=== PATIENT | female | born 1960 | race Caucasian/White ===

== ENCOUNTER → 2017-06-03 | Outpatient (CLI) | payer OTHER ==
[2017-06-03 08:11] LABS: Appearance,Urine Clear (Clear); Bilirubin,Urine Negative (Negative); Blood,Urine Negative (Negative); Color,Urine Yellow; Glucose,Urine (UA) Negative (Negative); Ketones,Urine Negative (Negative); Leukocyte Esterase,Urine Negative (Negative); Nitrite,Urine Negative (Negative); PH, Urine 7.5 (5.0-8.0); Protein,Urine Trace (Negative); Specific Gravity,Urine 1.017 (1.001-1.035); Urobilinogen,Urine <2.0 mg/dL (<2.0)
[2017-06-03 08:15] LABS: Basophils # (A) 0.1 k/uL (0-0.2); Basophils % (A) 1 %; Eosinophils # (A) 0.1 k/uL (0-0.7); Eosinophils % (A) 3 %; HCT 46.1 % (34.0-46.0); Lymphocytes % (A) 19 %; MCH 29.5 pg (25.0-35.0); MCHC 32.4 g/dL (31.0-37.0); MCV 90.9 fL (80.0-100.0); Mean Platelet Volume 8.3; Monocytes # (A) 0.3 k/uL (0-1.0); Monocytes % (A) 6 %; Neutrophils # (A) 3.9 k/uL (1.3-7.7); Neutrophils % (A) 71 %; Platelet Count 271 k/uL (150-450); RBC 5.08 m/uL (3.80-5.40); RDW 13.5 % (11.5-15.5); WBC 5.5 k/uL (3.8-10.6)
[2017-06-03 08:19] LABS: Anion Gap 10 mmol/L; Blood Urea Nitrogen 19 mg/dL (7-17); Calcium 10.1 mg/dL (8.4-10.2); Carbon Dioxide 29 mmol/L (22-30); Chloride 103 mmol/L (98-107); Glucose 87 mg/dL (74-99); Partial Thromboplastin Time 23.9 sec (22.0-30.0); Potassium 4.3 mmol/L (3.5-5.1); Prothrombin Time 10.2 sec (9.0-12.0); Sodium 142 mmol/L (137-145)
--- NOTE | 2017-06-03 08:33 | XR ---
EXAMINATION TYPE: XR chest 2V DATE OF EXAM: 06/03/2017 COMPARISON: NONE HISTORY: Preop back surgery TECHNIQUE: Frontal and lateral views of the chest are obtained. FINDINGS: Heart and mediastinum are normal. Lungs are clear. Diaphragm is normal. There is minor spu rring in the thoracic spine. IMPRESSION: No active cardiopulmonary disease.
== END | disposition home or self-care (01) ==
LOC: LABWHC1 07:31
PROVIDERS: ATTEND Orthopaedic Surgery Orthopaedic Surgery of the Spine
DX: Z01.818 Encounter for other preprocedural examination (principal); M48.07 Spinal stenosis, lumbosacral region; Z01.812 Encounter for preprocedural laboratory examination
CPT/HCPCS: 36415; 71020; 80048; 81003; 85025; 85610; 85730; 87070; 93005

== ENCOUNTER 2017-06-14 05:52 | Inpatient (IN) | payer OTHER ==
[2017-06-07 23:07] VITALS: BMI 27.4
[~2017-06-14 05:52] MED LIST: BACITRACIN 50,000 UNIT, POLYMYXIN B 500,000 UNIT in SODIUM CHLORIDE 0.9% IRRIGATIO 1,00... IRRIGATION ONE; ceFAZolin IN SWFI 2 GM/20 ML SYRINGE IVP ONE
[2017-06-14] MEDS ORDERED: DEXAMETHASONE SOD PHOSPHATE 10 MG/ML 1 ML VIAL IV ONE (06:12)
[2017-06-14] MEDS ORDERED: MIDAZOLAM 2 MG/2 ML VIAL IV PRN (06:12)
[2017-06-14] MEDS: LACTATED RINGERS 1,000 ML IV SCH (06:35)
[2017-06-14] MEDS ORDERED: LIDOCAINE 1% 20 ML VIAL (10MG/ML) FOR IV START INTRADERMA ONE (06:35)
[2017-06-14] MEDS: ONDANSETRON 4 MG/2 ML VIAL IVP ONE ×2 (06:37→12:08)
[2017-06-14] MEDS ORDERED: SODIUM CHLORIDE 0.9% IRRIG 1,000 ML BTL IRRIGATION ONE (07:42)
[2017-06-14] MEDS ORDERED: MORPHINE SULFATE 10 MG/ML SYRINGE ONE (07:42)
[2017-06-14] MEDS ORDERED: GLYCOPYRROLATE 0.2 MG/ML 2 ML VIAL ONE (07:42)
[2017-06-14] MEDS ORDERED: PROPOFOL 10 MG/ML 20 ML VIAL IV ONE (07:42)
[2017-06-14] MEDS ORDERED: fentaNYL (PF) 50 MCG/ML 2 ML AMP ONE (07:42)
[2017-06-14] MEDS ORDERED: ROCURONIUM BROMIDE 10 MG/ML 10 ML VIAL IV ONE (07:42)
[2017-06-14] MEDS ORDERED: NEOSTIGMINE 1 MG/ML 10 ML VIAL ONE (07:42)
[2017-06-14] MEDS ORDERED: HEPARIN SODIUM,PORCINE 10,000 UNIT/ML 1 ML VIAL ONE (07:42)
[2017-06-14] MEDS ORDERED: SUCCINYLCHOLINE CHLORIDE 100 MG/5 ML SYR IV ONE (07:42)
[2017-06-14] MEDS ORDERED: LIDOCAINE 1% INJ 10MG/ML (20 ML MDV) ONE (07:42)
[2017-06-14] MEDS ORDERED: MIDAZOLAM 2 MG/2 ML VIAL ONE (07:42)
[2017-06-14] MEDS ORDERED: KETAMINE 10 MG/ML 20 ML VIAL ONE (07:42)
[2017-06-14] MEDS ORDERED: THROMBIN (BOVINE) 5,000 UNIT VIAL TOPICAL ONE (08:34)
[2017-06-14] MEDS ORDERED: GELATIN SPONGE,ABSORB (SMALL) 1 EACH SPONGE TOPICAL ONE (08:34)
[2017-06-14] MEDS ORDERED: BUPIVACAINE (PF) 0.25% 30 ML VIAL SQ ONE (08:35)
[2017-06-14] MEDS ORDERED: LACTATED RINGERS 1,000 ML IV ONE ×2 (09:29→11:36)
[2017-06-14] MEDS ORDERED: HYDROmorphone 2 MG/ML 1 ML SYRINGE IVP PRN ×2 (11:40)
[2017-06-14] MEDS ORDERED: HYDROcodone/APAP 5-325MG 1 EACH TAB PO PRN (11:40)
[2017-06-14] MEDS ORDERED: BENZOCAINE/MENTHOL LOZENG 1 EACH LOZENGE MUCOUS MEM PRN (11:40)
[2017-06-14] MEDS ORDERED: DIAZEPAM 5 MG TAB PO PRN (11:40)
[2017-06-14] MEDS ORDERED: MAGNESIUM HYDROXIDE 2,400 MG/10 ML CUP PO PRN (11:40)
[2017-06-14] MEDS ORDERED: traMADol 50 MG TAB PO PRN (11:43)
[2017-06-14] MEDS ORDERED: oxyCODONE-APAP 10-325MG 1 EACH TAB PO PRN (11:43)
--- NOTE | 2017-06-14 11:53 | P.OP ---
Date of Procedure: 06/14/17 Preoperative Diagnosis: Spinal stenosis L4 5 L5-S1, degenerative disc disease L4 5 L5-S1, lower extremity radiculopathy, disc herniation L4 5 L5-S1, facet arthrosis Postoperative Diagnosis: Same Anesthesia: GETA Pathology: none sent Condition: stable Disposition: PACU Description of Procedure: DESCRIPTION OF PROCEDURE(S): BRIEF OPERATIVE NOTE Preoperative Diagnosis: Spinal Stenosis L4/5 L5/S1, degen disc disease L4/5, L5S1, herniated disc L4/5, L5/S1, lower extremity radiculopathy, Postoperative Diagnosis:same Procedure: Laminectomy and decompression L4/5, L5/S1 Minimally invasive Posterior decompression and fusion L4 5 L5- S1 Minimally invasive Transforaminal lumbar interbody fusion for a 360 fusion or 5 L5-S1 Discectomy for decompression L4 5 L5-S1 Placement of interbody graft L4 5 L5-S1 Local autogenous bone grafting Harvesting of bone marrow aspirate the pedicle of L4 on the right Use of Cell Saver Use of bone graft extenders Surgeon: Dr. Bird Sterile Technician: Johan Davila is present throughout the entire the case persistence during positioning, dissection, exposure, visualization, and all crucial elements of the case as well as closure. Anesthesia: General anesthesia per Dr. Ervin Estimated blood loss: Approximately 300 mL with 175 given back through Cell Saver Complications: None apparent Components implanted: K2M minimally invasive [place] pedicle screw system with use of 6 screws measuring 6.5 mm in diameter to rods and 2 Wise interbody cages with 1 osteoamp sponge and 30 mL of DBX bone fibers to supplemental local autogenous bone graft Disposition: To recovery room in good stable condition. OPERATIVE INDICATIONS The patient has had long-standing issues in their lower back and lower extremities. The patient was found to have significant stenosis L4 5 L5-S1 with disc herniation and degenerative disc disease. These findings correlated well with her low back pain and lower extremity radiculopathy. The patient has been through conservative treatment. She is not any prolonged benefit despite aggressive conservative treatment. We discussed various treatment options including surgery, and the patient wishes to proceed with surgery We discussed the risk, patient's alternatives and benefits of surgery including but not limited to, risk of bleeding risk of infection, risk of need for further surgery , risk of decreased, loss of motion, muscle function, malunion nonunion, hardware failure, nerve damage, paralysis, heart attack, blindness and . OPERATIVE SUMMARY After discussing all the risks, patient alternatives and benefits at length, the patient elected to proceed with surgical intervention, signed informed consent, and presented for their procedure. The patient was seen and examined in the preoperative holding area and the surgical site was marked. The patient was given antibiotics and brought to the operating room. The patient was sedated and intubated by anesthesia in standard fashion. The patient was positioned on to the operating room table in a prone position on the appropriate frame which was well-padded and well molded. We were careful to pad any bony prominences and pressure points. We were careful to maintain the patient's cervical spine and good neutral alignment and position throughout. The patient was prepped and draped in a normal standard fashion. An appropriate timeout and keystone protocol performed. We were able to proceed with the surgery. The local wound area was infiltrated with local anesthetic. I was able utilize C-arm guidance to establish appropriate position over the pedicles bilaterally at the appropriate levels at L4 and L5 bilaterally. With the appropriate levels confirmed was able to make small stab incisions over the appropriate pedicle sites bilaterally. Utilizing C-arm in his house able to establish a Jamshidi needle over the lateral aspect of the pedicle and advanced the trocar into the pedicle being careful not to breech superiorly inferiorly medially or laterally. Position was confirmed regularly with AP and lateral images on C-arm. I was able to establish the trocar into the pedicle appropriately into the posterior aspect of the vertebral body bilaterally at the appropriate levels. This was done at each of the pedicle positions and each of the vertebrae. On the right side of L4 I did draw bone marrow aspirate for supplementation of the bone graft for later use in the case. I was able place the guidewire into the trocar and into the vertebral body appropriately under C-arm guidance. Dissection was taken down over the wire to the appropriate starting position for the screw placed. The appropriate length screw was chosen, threaded over the guidewire and screwed appropriately into the pedicle and vertebral body under C-arm guidance in excellent alignment and position with good bony purchase. This is done at each of the screw sites at the appropriate levels at L4-L5 and S1 bilaterally. With the screws intact I extended the incision to connect the screw hole sites on the most symptomatic side on the left. I dissected down to establish access over the pars and lamina to the base of the spinous process. I was able to expose the facet joint. The capsule the facet was taken down and showed some facet arthrosis at the joint first at L4 5 and then at L5-S1. I was able to use a combination of curettes and Kerrison rongeurs and a high-speed drill to take down the facet joint and do a facetectomy. Partial laminectomy was also performed. I was able get excellent foraminal decompression and central decompression with undermining across midline to perform a laminectomy centrally and contralaterally. As able get good central decompression. The ligamentum flavum was taken down to further decompress centrally and at bilateral neural foramen. I was able to expose the disc space and visualize the traversing nerve root. Note was made of some disc protrusion at the level causing further compression of the nerve root. I was able to establish a annulotomy at the appropriate level protecting soft tissue and neural structures. Note was made of some disc desiccation at the disc. I performed a complete discectomy with accommodation of curettes and rasps and scrapers. The discectomy provided further decompression as well. I was able get good endplate preparation at the disc space. I sized for the appropriate size interbody spacer protecting the soft tissue and neural structures. The wound was copiously irrigated and suctioned dry. There is no evidence of any dural tear or leak. I was able to pack the disc space with local autogenous bone graft as well as a small amount of bone graft which was also placed into the interbody cage itself. Protecting the soft tissue structures and neural structures I was able place the interbody cage in good alignment and good position with good fit and fill at the interbody space at L4 5 and L5-S1. Position was confirmed with C- arm guidance. Good hemostasis maintained. There is no evidence of any dural tear or leak. The wound was irrigated and suctioned dry. With the hardware intact, intraoperative C-arm imaging was again taken which showed good alignment and position of the hardware at the appropriate levels at L4 5 and L5-S1. We were then able to measure, contour and place the rods and appropriate hardware bilaterally. I was able to place capcrews, tighten them down, and torque them with the torque screwdriver appropriately. With this intact I was able to place the local autogenous bone graft with additional bone graft enhancer as necessary into the posterior lateral gutters over the decorticated transverse processes and at the decorticated facet joints on the right. The remainder of the bone graft was placed over the facet joint on the contralateral side after taking down the facet joint capsule. With the bone graft intact, a stable construct, and good decompression at the appropriate levels, we were able to proceed with closure. Good hemostasis was maintained. There is no evidence of dural tear or leak. The fascia was closed for a watertight closure. he subcuticular tissue was closed with absorbable suture. The wound was cleaned and dried and dressed with the appropriate dressing. The drapes were broken down. The patient was gently rolled back onto their hospital bed being careful to maintain their cervical spine and good neutral alignment and position. They were woken up by anesthesia, extubated, and brought to the recovery room in good stable condition. The patient will be admitted to the hospital for appropriate postoperative care , medical management and monitoring. We will continue to follow them closely about the postoperative course.
[2017-06-14] MEDS: HYDROmorphone 0.5 MG/0.5 ML SYRINGE IVP PRN ×4 (12:08→14:20)
--- NOTE | 2017-06-14 14:57 | FL ---
Fluoroscopy HISTORY: Lumbar fusion 1.15 minutes fluoroscopy time supplied to the referring clinician. 2 intraoperative C-arm images doc ument the procedure. See dictated report from orthopedic surgery.
[2017-06-14] MEDS: SODIUM CHLORIDE 0.9% 1,000 ML IV SCH (14:58)
--- NOTE | 2017-06-14 14:58 | XR ---
Limited lumbar spine HISTORY: Lumbar fusion 2 intraoperative C-arm images document the procedure
[2017-06-14] MEDS: ceFAZolin IN SWFI 2 GM/20 ML SYRINGE IVP SCH (15:24)
[2017-06-14] MEDS: BACLOFEN 10 MG TAB PO SCH ×2 (15:25→20:28)
[2017-06-14] MEDS: ONDANSETRON 4 MG/2 ML VIAL IVP PRN (15:31)
[2017-06-14] MEDS ORDERED: CYCLOBENZAPRINE 10 MG TAB PO SCH (21:00)
--- NOTE | 2017-06-14 23:00 | CONS ---
CONSULTATION DATE OF CONSULTATION: 06/14/2017 REASON FOR CONSULTATION: Medical management requested by Dr. Rodríguez. CONSULTATION: This is a 56-year-old patient of Dr. Tima Brunson whose chronic stable medical conditions include GERD, insomnia, constipation from pain medications. The patient is having chronic low back pain for a long time with referred pain to both the legs not controlled with pain medication or other therapy. The patient was diagnosed to have spinal stenosis L4-L5, DJD and disc herniation to the L4-L5 level. Because of failed treatment, patient did undergo surgical intervention for the same. Post procedure, the patient has a Goldberg catheter in place. Some nausea was present. No chest pain short or shortness of breath. Denies any cardiac history. Pain was more in the lumbar area and did radiate to the lower extremities. It was normally worse with movement and activity. REVIEW OF SYSTEMS: CONSTITUTIONAL: None. HEENT: None. RESPIRATORY: None. CARDIOVASCULAR: None. GASTROINTESTINAL: Heartburn. GENITOURINARY: Currently Goldberg catheter. DERMATOLOGICAL: None. HEMATOLOGIC: None. LYMPHATIC: None. PSYCHIATRY: None. NEUROLOGICAL: Trouble sleeping because of pain. PAST MEDICAL HISTORY: GERD, lumbar spine DJD, spinal stenosis, radiculopathy, constipation from pain medication, muscle spasms. PAST SURGICAL HISTORY: Bariatric surgery, gastric sleeve, DNS repair. SOCIAL HISTORY: The patient smokes less than a pack a day over 22 years, stopped 15 years ago, . FAMILY HISTORY: Reviewed, noncontributory to presentation. HOME MEDICATIONS: 1. Ultram 50 mg every 6 hours p.r.n. 2. Percocet 10 1 tablet every 6 hours p.r.n. 3. Prilosec 40 mg p.o. daily. 4. Naproxen 500 mg p.o. q.12. 5. Antivert 25 p.o. b.i.d. 6. Flexeril 20 mg q.h.s. 7. Baclofen 10 mg p.o. q.5 hours. 8. Amoxicillin 5 mg q.8. ALLERGIES: None. EXAMINATION: Afebrile, pulse 67, respirations 16, blood pressure 123/75, pulse ox 98% on 2L. GENERAL APPEARANCE: Average build, lying in bed, not in distress. EYES: Pupils equal. Conjunctivae normal. HEENT: Oral cavity normal. NECK: JVD not raised. Mass not palpable. RESPIRATORY: Effort normal. LUNGS: Fair air entry. CARDIOVASCULAR: First and second sounds normal. No edema. ABDOMEN: Soft, nontender. Liver and spleen not palpable. Goldberg catheter in place. LYMPHATIC: No lymph nodes palpable in neck or axillae. PSYCHIATRY: Alert and oriented x3. Mood and affect normal. NEUROLOGICAL: Pupils equal. Cranial nerves grossly intact. Power and sensation grossly intact. MUSCULOSKELETAL: Dressing over the lumbar spine. INVESTIGATIONS: Blood work from 06/04 shows a white count of 5.4, hemoglobin of 15.0. Potassium 4.3, creatinine 0.77. ASSESSMENT: 1. Spinal stenosis L4-L5, L5-S1, degenerative joint disease of the same with lower extremity radiculopathy. Disk herniation L4-L5-S1 followed up with diskectomy and decompression. 2. Chronic constipation secondary to pain medications. 3. Chronic insomnia due to pain. 4. Postoperative nausea secondary to pain medications. PLAN: The patient is currently on IV Ancef, IV Dilaudid for pain control, IV gentle hydration. Goldberg catheter is in place. Care was discussed with the patient. Antispasmodic are to continue. Patient is going to get antiemetics. Patient can get melatonin for insomnia. Care was discussed the patient. Questions were answered. Thank you, Dr. Bird. MMEDUARDOL / IJN: [id number] /
[2017-06-14] MEDS: MECLIZINE 25 MG TAB PO SCH (23:44)
[2017-06-15] MEDS: ceFAZolin IN SWFI 2 GM/20 ML SYRINGE IVP SCH (00:44)
[2017-06-15] MEDS: BACLOFEN 10 MG TAB PO SCH ×3 (01:51→10:07)
[2017-06-15] MEDS: HYDROcodone/APAP 5-325MG 1 EACH TAB PO PRN ×3 (02:31→11:05)
[2017-06-15] MEDS: SODIUM CHLORIDE 0.9% 1,000 ML IV SCH ×2 (02:45→07:29)
[2017-06-15] MEDS: LACTATED RINGERS 1,000 ML IV SCH (04:32)
[2017-06-15 05:43] VITALS: BP 160/71; PULSE 80; RESP 17; TEMP 98.5
[2017-06-15] MEDS: MECLIZINE 25 MG TAB PO SCH (07:24)
[2017-06-15] MEDS ORDERED: PANTOPRAZOLE 40 MG TABLET PO SCH (07:30)
[2017-06-15 07:31] LABS: Basophils % (A) 0 %; Eosinophils # (A) 0.1 k/uL (0-0.7); Eosinophils % (A) 1 %; HCT 39.1 % (34.0-46.0); HGB 12.5 gm/dL (11.4-16.0); Lymphocytes # (A) 0.9 k/uL (1.0-4.8); Lymphocytes % (A) 9 %; MCH 28.5 pg (25.0-35.0); Mean Platelet Volume 8.6; Monocytes # (A) 0.5 k/uL (0-1.0); Monocytes % (A) 5 %; Neutrophils % (A) 85 %; Platelet Count 229 k/uL (150-450); RBC 4.39 m/uL (3.80-5.40); RDW 13.2 % (11.5-15.5); WBC 10.6 k/uL (3.8-10.6)
[2017-06-15 07:49] LABS: Anion Gap 8 mmol/L; Blood Urea Nitrogen 13 mg/dL (7-17); Calcium 9.4 mg/dL (8.4-10.2); Carbon Dioxide 29 mmol/L (22-30); Chloride 106 mmol/L (98-107); Glucose 103 mg/dL (74-99); Potassium 4.4 mmol/L (3.5-5.1); Sodium 143 mmol/L (137-145)
[2017-06-15] MEDS ORDERED: SENNOSIDES-DOCUSATE SODIUM 1 EACH TAB PO SCH (09:00)
[2017-06-15] MEDS: ONDANSETRON 4 MG/2 ML VIAL IVP PRN (09:22)
--- NOTE | 2017-06-15 10:11 | P.DS ---
Providers Date of admission: 06/14/17 05:52 Attending physician: Leonardo Bird Consults: 06/14/17 11:40 Consult Physician Routine Consulting Provider: Chet Lundberg Consult Reason/Comments: Clinical management Do you want consulting provider notified?: Yes Primary care physician: Tima Chanel [facility] Course: The patient presented on the day of admission as per her operative note. She says she has pain around her incision site but has been able to get up and move around. The pain is controlled with oral medications. She has been able to void area and she is tolerating her diet adequately. She feels her legs are doing some better but they still have some numbness. She denies any chest pain or shortness of breath. She does have history of vertigo but is not having any nausea or vomiting. Physical Exam The incision site is clean dry and intact. There is no erythema no drainage. There is no purulence no evidence of infection. I change the dressing and there is no active drainage or bleeding. Abdomen soft and nontender. Chest has good excursion with deep inspiration and expiration. The patient has active and passive range of motion intact at the upper and lower extremities. There is no acute change in neurologic status. She has sustained dorsiflexion plantarflexion and extensor hallucis longus intact. Hospital Course Postoperative day #1 status post minimally invasive decompression and fusion L4 5 and L5-S1 for her spinal stenosis with disc herniation and lower extremity radiculopathy The patient has been making good progress postoperatively. She feels her legs have made some improvement. She has pain at her lower back from the surgery site but this is in controlled appropriately. They have completed the prophylactic antibiotics without any signs or symptoms of infection. The patient has been able to advance their diet, and is tolerating diet adequately. The pain was initially controlled with IV medications and is now controlled appropriately with oral medications. The patient has been able to increase their mobilization. The patient has progressed appropriately. She feels that she is able to mobilize and control the pain adequately with oral medications. I think they are in good stable condition for discharge today. They will be sent home with appropriate prescriptions. I answered their questions to the best of my ability in a language that they can understand and they are agreeable with the plan. They will follow up as directed in approximately 2 weeks or sooner if she is having any problems. Patient Condition at Discharge: Good Plan - Discharge Summary Discharge Rx Participant: No New Discharge Prescriptions: No Action oxyCODONE-APAP 10-325MG [Percocet 10-325 mg] 1 tab PO Q6HR PRN PRN Reason: Pain Meclizine [Antivert] 25 mg PO BID traMADol HCL [Ultram] 50 mg PO Q6HR PRN PRN Reason: Pain Naproxen [Naprosyn] 500 mg PO Q12HR Baclofen [Lioresal] 10 mg PO Q5H Omeprazole [PriLOSEC] 40 mg PO DAILY Amoxicillin 500 mg PO Q8H Cyclobenzaprine [Flexeril] 20 mg PO HS Discharge Medication List Baclofen [Lioresal] 10 mg PO Q5H 06/06/17 [History] Meclizine [Antivert] 25 mg PO BID 06/06/17 [History] Naproxen [Naprosyn] 500 mg PO Q12HR 06/06/17 [History] Omeprazole [PriLOSEC] 40 mg PO DAILY 06/06/17 [History] oxyCODONE-APAP 10-325MG [Percocet 10-325 mg] 1 tab PO Q6HR PRN 06/06/17 [History ] traMADol HCL [Ultram] 50 mg PO Q6HR PRN 06/06/17 [History] Amoxicillin 500 mg PO Q8H 06/08/17 [History] Cyclobenzaprine [Flexeril] 20 mg PO HS 06/14/17 [History] Follow up Appointment(s)/Referral(s): Leonardo Bird DO [Doctor of Osteopathic Medicine] - 2 Weeks Activity/Diet/Wound Care/Special Instructions: May ambulate to tolerance Avoid heavy or rigorous activity No repetitive bending twisting No lifting greater than 15 pounds Keep incision site clean. May shower with waterproof Tegaderm intact, but do not soak in a tub. On Monday, patient may shower with area uncovered by leave Steri-Strips intact and allow them to fray off on their own. Discharge Disposition: HOME SELF-CARE
--- NOTE | 2017-06-15 19:32 | P.PN ---
Progress Note - Text Progress Note Date: 06/15/17 DATE OF SERVICE: 06/15/2017: PRESENTING COMPLAINT: Low back pain, chronic HISTORY OF PRESENT ILLNESS: 56-year-old female with known spinal stenosis at L4-L5 DJD and disc herniation to the L4-L5 level, failed outpatient treatment underwent surgical intervention. Now status post minimally invasive transforaminal lumbar interbody fusion at L4-L5, L5-S1 INTERVAL HISTORY: 06/15/2017: Patient lying in bed, appears fairly comfortable. Afebrile, Dressed and ready for discharge. Work with physical therapy, has some pain which is fairly well controlled. Had an episode of nausea this morning likely due to pain medications. No chest pain shortness of breath or pain in her legs. REVIEW OF SYSTEMS: Done for constitutional ,cardiovascular, GI, pulmonary with relevant findings as above. CURRENT MEDICATIONS [place], baclofen, Kefzol, Flexeril, Valium, Dilaudid, milk of magnesia, Antivert , Versed, Percocet, Protonix, Senokot-S. PHYSICAL EXAM VITAL SIGNS: Temperature 98.5, pulse 80, respiratory rate 17, blood pressure 160/71, oxygen saturation 98% GENERAL APPEARANCE: Lying in bed, not in distress. HEENT: Normocephalic, Pupils equal. Conjunctiva normal. JVD not raised. Mass not palpable.: RESPIRATORY: Respiratory effort normal. Lungs fair air entry . CARDIOVASCULAR: First and second sounds normal. No edema. ABDOMEN: Soft. Liver and spleen not palpable. No tenderness. No mass palpable. PSYCHIATRY: Alert and oriented x3. Mood and affect normal. NEUROLOGICAL: Cranial nerves grossly intact. No facial asymmetry. Power and sensation grossly intact MUSCULOSKELETAL: Dressing over the lumbar spine INVESTIGATIONS: ASSESSMENT: -Spinal stenosis L4-L5, L5-S1, degenerative joint disease of the same with lower extremity radiculopathy. Disc herniation L4 through L5 through S1 followed up with discectomy and decompression. -Chronic constipation secondary to pain medications. -Chronic insomnia due to pain. -Postoperative nausea secondary to pain medication. PLAN: Pain is well controlled, patient's ambulatory with some assistance, orthopedic surgeon has cleared patient for discharge, patient advised to continue stool softeners and laxatives due to her pain medication regimen. Patient is stable for discharge this afternoon. SOLAR APPLICATIONS DEVELOPMENT ENGINEER statement: Patient was seen and examined by nurse practitioner Hoa Wallace and all elements of the case discussed with attending Dr. Lundberg
--- NOTE | 2017-06-16 23:05 | PN ---
PROGRESS NOTE DATE OF SERVICE: 06/15/2017. ATTENDING NOTE: The patient seen and examined by me. I discussed with my nurse practitioner, Ms. Wallace. Yesterday on 06/15/2017, the patient is status post lower back surgery. Doing much better. Up to the bathroom. Pain is much better controlled. Making urine. No nausea, vomiting. EXAM: Lungs are clear. CARDIOVASCULAR: First and second sounds normal. DISPOSITION: Home. Patient is to follow up with her family doctor. Care was discussed the patient. Thank you, Dr. Rodríguez. RENETTA / KALEBN: [id number] /
== END 2017-06-15 13:28 | disposition home or self-care (01) | DRG 455 ==
LOC: 2ORMAIN 05:52 → 3SUR 14:02
PROVIDERS: ADMIT Orthopaedic Surgery Orthopaedic Surgery of the Spine; ATTEND Orthopaedic Surgery Orthopaedic Surgery of the Spine
PROC: 0SG33AJ Fusion of Lumbosacral Joint with Interbody Fusion Device, Posterior Approach, Anterior Column, Percutaneous Approach (ICD-10-PCS; 2017-06-14)
PROC: 0SG0371 Fusion of Lumbar Vertebral Joint with Autologous Tissue Substitute, Posterior Approach, Posterior Column, Percutaneous Approach (ICD-10-PCS; 2017-06-14)
PROC: 0ST20ZZ Resection of Lumbar Vertebral Disc, Open Approach (ICD-10-PCS; 2017-06-14)
PROC: 0SG03AJ Fusion of Lumbar Vertebral Joint with Interbody Fusion Device, Posterior Approach, Anterior Column, Percutaneous Approach (ICD-10-PCS; 2017-06-14)
PROC: 0SG3371 Fusion of Lumbosacral Joint with Autologous Tissue Substitute, Posterior Approach, Posterior Column, Percutaneous Approach (ICD-10-PCS; 2017-06-14)
PROC: 0ST40ZZ Resection of Lumbosacral Disc, Open Approach (ICD-10-PCS; 2017-06-14)
PROC: 4A11X4G Monitoring of Peripheral Nervous Electrical Activity, Intraoperative, External Approach (ICD-10-PCS; 2017-06-14)
PROC: 07DS3ZZ Extraction of Vertebral Bone Marrow, Percutaneous Approach (ICD-10-PCS; 2017-06-14)
PROC: 30233N0 Transfusion of Autologous Red Blood Cells into Peripheral Vein, Percutaneous Approach (ICD-10-PCS; principal; 2017-06-14 07:30)
DX: M51.17 Intervertebral disc disorders with radiculopathy, lumbosacral region (principal); G47.01 Insomnia due to medical condition; H91.90 Unspecified hearing loss, unspecified ear; K21.9 Gastro-esophageal reflux disease without esophagitis; K59.03 Drug induced constipation; T40.605A Adverse effect of unspecified narcotics, initial encounter; G89.29 Other chronic pain; M62.830 Muscle spasm of back; M51.16 Intervertebral disc disorders with radiculopathy, lumbar region; M48.061 Spinal stenosis, lumbar region without neurogenic claudication; M48.07 Spinal stenosis, lumbosacral region; R11.0 Nausea; Z79.891 Long term (current) use of opiate analgesic; Z79.899 Other long term (current) drug therapy; Z83.3 Family history of diabetes mellitus; Z82.49 Family history of ischemic heart disease and other diseases of the circulatory system; Z98.84 Bariatric surgery status; Z87.891 Personal history of nicotine dependence; Z79.2 Long term (current) use of antibiotics
CPT/HCPCS: 72100; 80048; 85025; 86850; 86891; 86900; 86901; 94760